=== PATIENT | male | born 1990 | race Caucasian/White ===

== ENCOUNTER 2017-08-29 15:45 | Emergency (ER) | payer BC ==
[2017-08-29] MEDS: morphine 4 MG/ML VIAL IV (16:49)
[2017-08-29] MEDS: ONDANSETRON 4 MG INJ IV (16:50)
[2017-08-29] MEDS: HYDROmorphONE 0.5 MG/0.5 ML SYG IV (18:28)
[2017-08-29] MEDS: PROPOFOL 200 MG INJ IV (19:35)
== END 2017-08-29 21:00 | disposition home or self-care (01) ==
LOC: E/R 21:00 → FTE 15:45
DX: S53.125A Posterior dislocation of left ulnohumeral joint, initial encounter (principal); S52.042A Displaced fracture of coronoid process of left ulna, initial encounter for closed fracture; V00.131A Fall from skateboard, initial encounter; Y92.9 Unspecified place or not applicable; Z87.891 Personal history of nicotine dependence
CPT/HCPCS: 24600; 73070; 73080-LT; 94770; 96374; 96375; 99285-25